=== PATIENT | female | born 1975 ===

== ENCOUNTER 2022-03-20 20:13 | Emergency (ER) | payer OTHER ==
[2022-03-20 20:41] VITALS: O2SAT 100
[2022-03-20 21:41] VITALS: BP 122/79; PULSE 82
--- NOTE | 2022-03-20 22:08 | XRAY ---
Indication: Pain. Two-dimensional sonogram and color Doppler imaging of the major venous vessels of the left leg performed. Comparison: None No thrombus seen in the examined deep venous vessels of the left leg including greater saphenous vein. Veins demonstrate normal compressibility. Venous waveforms are normal with and without augmentation. Impression: Left leg negative for DVT. Comment: Preliminary report given.
--- NOTE | 2022-03-20 22:25 | ERPHSYRPT ---
- History of Present Illness Time Seen by Provider: 03/20/22 20:22 Source: patient Exam Limitations: no limitations Patient Subjective Stated Complaint: pt states "I have been having leg pain since . I had covid in 2019 and since then have this leg pain. I had an elevated D-Dimer and negative ultrasounds and CT. The past 2 days it has gotten worse." Triage Nursing Assessment: pt ambulated into the er; pt is axo x4; c/o left lower leg pain; pt states numbness and tingling in LLE; pt states 4/10 pain to LLE; hx covid; strong left pedal pulse; strong popliteal pulse; good cap refill to LLE; no redness or striking to LLE; no edema present to LLE; hypertensive Physician History: 46 years old female presented to ER with chief complaint of left lower extremity pain. Patient reports she had off-and-on pain left lower extremity since she got COVID in 2019. She has been taking [id number] medication with no significant relief and for the last couple of days having more pain in the back of her knee and left lateral thigh area. She also reports tingling sensation and burning with numbness of lateral foot and lateral thigh. Patient called her primary care and is sent in here for DVT rule out. Denies any fall or trauma. Timing/Duration: week(s), intermittent, worse Severity: moderate Modifying Factors: Improves With: nothing Associated Symptoms: denies symptoms Allergies/Adverse Reactions: No Known Drug Allergies Allergy (Unverified 03/20/22 20:24) Home Medications: Amlodipine Besylate 10 mg PO DAILY 03/20/22 [History] Aspirin [Low Dose Aspirin EC] 81 mg PO BID 03/20/22 [History] Enalapril Maleate 20 mg PO DAILY 03/20/22 [History] Lisdexamfetamine Dimesylate [Vyvanse] 70 mg PO DAILY 03/20/22 [History] Magnesium Oxide [Magnesium] 500 mg PO DAILY 03/20/22 [History] Metformin HCl 500 mg [Glucophage 500 MG] 500 mg PO BIDWM 03/20/22 [History] Sertraline HCl 50 mg [Zoloft 50 mg Tablet] 50 mg PO DAILY 03/20/22 [History] Sitagliptin Phosphate 50 MG [Januvia 50 MG] 100 mg PO DAILY 03/20/22 [History] Thyroid,Pork [[place] Thyroid] 70 mg PO DAILY 03/20/22 [History] Tirzepatide [Mounjaro] 2.5 mg SQ WEEKLY 03/20/22 [History] Valacyclovir HCl [Valtrex] 500 mg PO DAILY PRN 03/20/22 [History] hydroCHLOROthiazide [Hydrochlorothiazide] 12.5 mg PO DAILY 03/20/22 [History] Hx Tetanus, Diphtheria Vaccination/Date Given: Yes Hx Influenza Vaccination/Date Given: No Hx Pneumococcal Vaccination/Date Given: No Immunizations Up to Date: Yes Travel Risk - International Travel Have you traveled outside of the country in past 3 weeks: No - Coronavirus Screening Are you exhibiting any of the following symptoms?: No Close contact with a COVID-19 positive Pt in past 14-21 Days: No - Vaccine Status Have you recieved a Covid-19 vaccination: Yes [employer]: [employer] - Vaccination Dates Date of 2cond Vaccination (if applicable): 2020 - Review of Systems Constitutional: No Symptoms Ears, Nose, & Throat: No Symptoms Respiratory: No Symptoms Cardiac: No Symptoms Abdominal/Gastrointestinal: No Symptoms Genitourinary Symptoms: No Symptoms Musculoskeletal: Myalgias Skin: No Symptoms Neurological: Parasthesia Psychological: No Symptoms Endocrine: No Symptoms Hematologic/Lymphatic: No Symptoms - Past Medical History Pertinent Past Medical History: Yes Neurological History: No Pertinent History ENT History: No Pertinent History Cardiac History: Hypertension Respiratory History: Asthma Endocrine Medical History: Diabetes Type II, Hypothyroidism Musculoskeletal History: No Pertinent History GI Medical History: No Pertinent History History: No Pertinent History Psycho-Social History: Anxiety, Depression Female Reproductive Disorders: No Pertinent History - Past Surgical History Past Surgical History: No - Social History Smoking Status: Never smoker Exposure to second hand smoke: No Drug Use: none Patient Lives Alone: No - Female History Hx Now: No - Nursing Vital Signs Nursing Vital Signs: Initial Vital Signs Temperature 98.3 F 03/20/22 20:24 Pulse Rate 80 03/20/22 20:24 Respiratory Rate 16 03/20/22 20:24 Blood Pressure 151/92 03/20/22 20:24 O2 Sat by Pulse Oximetry 100 03/20/22 20:24 Pain Scale Pain Intensity 4 - Physical Exam General Appearance: no apparent distress, alert Eye Exam: PERRL/EOMI Ears, Nose, Throat Exam: normal ENT inspection Neck Exam: normal inspection, supple, full range of motion Respiratory Exam: normal breath sounds, lungs clear Cardiovascular Exam: regular rate/rhythm, normal heart sounds Extremity Exam: normal inspection, normal range of motion, pelvis stable, tenderness (Left lateral thigh. Tenderness popliteal fossa) Neurologic Exam: alert, oriented x 3, cooperative Skin Exam: normal color SpO2 Interpretation: normal SpO2: 100 O2 Delivery: Room Air Ordered Tests: Active Orders 24 hr Category Date Time Status VENOUS UNILAT/LIMITED EXTREMIT [US] Stat Exams 03/20/22 21:57 Completed - Progress Progress: unchanged Progress Note: 03/20/22 22:24 She is offered pain medication which she refused. Ruled out DVT. No signs of cellulitis. It seems more of neuropathic pain, recommended outpatient follow- up. Counseled pt/family regarding: diagnosis, need for follow-up, rad results - Departure Departure Disposition: Home Clinical Impression: Thigh pain Condition: Stable Critical Care Time: No Referrals: SIDNEY SORTO [Primary Care Provider] - Follow Up with PCP/3 days Instructions: Paresthesia (DC) Additional Instructions: Take Tylenol/ibuprofen as needed. Follow-up with your primary care for reevaluation. Return to ER for any worsening.
== END 2022-03-20 22:29 | disposition home or self-care (01) ==
LOC: ED 20:13
DX: M79.652 Pain in left thigh (principal); R20.2 Paresthesia of skin; I10 Essential (primary) hypertension; E11.9 Type 2 diabetes mellitus without complications; Z79.84 Long term (current) use of oral hypoglycemic drugs; Z79.899 Other long term (current) drug therapy; Z86.16 Personal history of COVID-19
CPT/HCPCS: 93971; 99282